=== PATIENT | female | born 1935 | race Caucasian/White ===

== ENCOUNTER → 2016-10-19 | Outpatient (CLI) | payer MEDICARE, OTHER ==
[~2016-10-19] MED LIST: ACETAMINOPHEN500 M2 PO; APAP325 M1 PO; ASPIRIN ENTERI325 M1 DOB; ASPIRIN325 M1 PO; BACTRIM DS TABL1 TA1 PO; CLEOCIN HCL300 M1 PO; DIOVAN HCT 80/11 TAB PO; FISH OIL500 M1 PO; FOLIC ACID1 MG PO; HYDROXYZINE HCL25 M1 DOB; IRON PO; LIBRIUM25 M1 PO; LISINOPRIL5 MG PO; LORTAB 5-325 M1 EACH PO; METHIMAZOLE10 MG PO; METHIMAZOLE5 MG PO; MOBIC PO; MULTI COMPLETE1 EACH PO; MULTI-VITAMIN1 EAC1 PO; NORVASC PO; NORVASC10 MG PO; OMEPRAZOLE40 M1 PO; PERCOCET5/325 PO; PROTONIX PO; REQUIP0.25 MG PO; ROPINIROLE HCL0.5 MG PO; ST. JOSEPH ASP325 MG PO; THIAMINE HCL100 M2 PO; VITAMIN C1000 M1 PO; VITAMIN D400 UNI1 PO
--- NOTE | ~2016-10-19 | MY7 ---
[facility] A Service of [facility] & [facility] RADIOLOGY TEXT RESULTS PATIENT: MARIANNA JACKSON LOCATION: [facility] : 34 UNIT #: [id number] AGE: [address]: JUNI TOVAR SEX: F ORDER DR: [id number] [facility] [address] [place], [place] [address] [id number] O MR#: [id number] Acc #: [id number] NAME: MARIANNA JACKSON : 1935 SEX: F STUDY DATE/TIME: 10/19/2016 14:54 UNIT: [facility] ROOM: STUDY DESCRIPTION: MY Mammogram Dx Dig Lt Attending Physician: Nola Rivera Referring Physician: Nola Rivera Ordering Physician: Nola Rivera Primary Care Physician: Tracey Perry M.D. MEDICAL IMAGING REPORT This report is preliminary unless electronic signature is present EXAM Diagnostic left mammogram. DATE OF EXAM 10/19/2016 INDICATION Abnormal screening exam showing asymmetric density in the lateral anterior left breast. 2 areas of asymmetric density are noted in the upper left breast as well. The patient has no current complaints. FINDINGS Spot compression digital left CC and MLO views were obtained in addition to a standard true lateral view. The study is reviewed with an FDA-approved CAD device. COMPARISON Comparison is made with 12/01/2015. Additional image today confirm an asymmetric density in the lateral anterior left breast on the CC view, measuring about 10 mm in size. This is probably mammographically located in the upper hemisphere as well. Ultrasound was performed. Ultrasound demonstrates 2 areas of abnormality, adjacent to one another at the 3 o'clock periareolar location. One of these is an ovoid hypoechoic fairly well circumscribed lesion measuring up to 9 mm. The other area is a suspicious area of shadowing which probably corresponds to the mammographic finding. Ultrasound-guided core biopsy of the area of shadowing is recommended. The more nodular area of density could be biopsied or aspirated at that time as well. Findings and recommendations have been discussed with the patient at the time of her examination today. They have also been discussed with Jana, in the breast advocate office for physician notification purposes. Of note, the [facility] A Service of [facility] & [facility] RADIOLOGY TEXT RESULTS PATIENT: MARIANNA JACKSON LOCATION: [facility] : 34 UNIT #: [id number] AGE: [address]: JUNI TOVAR SEX: F ORDER DR: patient reports that she is on aspirin daily. I believe it is safe to proceed wit a core biopsy with the patient on aspirin. IMPRESSION 1. Suspicious mammographic lesion with an ultrasound correlate at 3 o'clock. Ultrasound-guided core biopsy recommended with clip placement. Adjacent to the suspicious finding, there is an indeterminant nodule as well. This could be biopsied or aspirated as well at the time, when the patient returns for her procedure. 2. BIRADS 4. Patients over the age of 40 are entered into a reminder system with target due date for the next mammogram. A result letter will also be sent to the patient. BIRADS: 4 Suspicious abnormality; biopsy should be considered. Dictated by... Bk Beckett Jr., M.D. THIS IS AN ELECTRONICALLY VERIFIED REPORT Bk Beckett Jr., M.D. at 10/20/2016 8:25 AM KARIE/meena TD: 10/19/2016 17:41 JOB #: [id number] MEDICAL IMAGING REPORT Page 1 of 1 COPY
--- NOTE | ~2016-10-19 | US24 ---
[facility] A Service of [facility] RADIOLOGY TEXT RESULTS PATIENT: MARIANNA JACKSON LOCATION: [facility] : 34 UNIT #: [id number] AGE: [address]: JUNI TOVAR SEX: F ORDER DR: [id number] [place], [place] [address] [id number] O MR#: [id number] Acc #: [id number] NAME: MARIANNA JACKSON : 1935 SEX: F STUDY DATE/TIME: 10/19/2016 15:18 UNIT: [facility] ROOM: STUDY DESCRIPTION: US Breast Unilateral Attending Physician: Nola Rivera Referring Physician: Nola Rivera Ordering Physician: Nola Rivera Primary Care Physician: Tracey Perry M.D. MEDICAL IMAGING REPORT This report is preliminary unless electronic signature is present EXAM Left breast ultrasound. DATE OF EXAM 10/19/2016 INDICATION Abnormal mammogram demonstrating asymmetric density in the left breast. FINDINGS For a full report, please see the mammogram report dated 10/19/2016. Patients over the age of 40 are entered into a reminder system with target due date for the next mammogram. A result letter will also be sent to the patient. BIRADS: 4 Suspicious abnormality; biopsy should be considered. Dictated by... Bk Beckett Jr., M.D. THIS IS AN ELECTRONICALLY VERIFIED REPORT Bk Beckett Jr., M.D. at 10/20/2016 8:25 AM KARIE/meena TD: 10/19/2016 18:03 JOB #: [id number] [facility] A Service of [facility] RADIOLOGY TEXT RESULTS PATIENT: MARIANNA JACKSON LOCATION: [facility] : 34 UNIT #: [id number] AGE: [address]: JUNI TOVAR SEX: F ORDER DR: MEDICAL IMAGING REPORT Page 1 of 1 COPY
== END | disposition home or self-care (01) ==
LOC: CMAM 12:30
DX: R92.8 Other abnormal and inconclusive findings on diagnostic imaging of breast (principal); N64.89 Other specified disorders of breast
CPT/HCPCS: 76641; G0206

== ENCOUNTER → 2016-10-26 | Day surgery (SDC) | payer MEDICARE, OTHER ==
--- NOTE | ~2016-10-26 | US200 ---
[facility] A Service of [facility] RADIOLOGY TEXT RESULTS PATIENT: MARIANNA JACKSON LOCATION: [facility] : 34 UNIT #: [id number] AGE: [address]: Tracey Perry MD SEX: F ORDER DR: [id number] [facility]. [place], [place] [address] [id number] O MR#: [id number] Acc #: [id number] NAME: MARIANNA JACKSON : 1935 SEX: F STUDY DATE/TIME: 10/26/2016 14:18 UNIT: [facility] ROOM: STUDY DESCRIPTION: US Breast Guided Bx 1st Lesion Attending Physician: Tracey Perry M.D. Referring Physician: Tracey Perry M.D. Ordering Physician: Tracey Perry M.D. Primary Care Physician: Tracey Perry M.D. MEDICAL IMAGING REPORT This report is preliminary unless electronic signature is present REVISED REPORT SEE ADDENDUM EXAM Ultrasound-guided core biopsy of 2 left breast nodules. DATE 10/26/2016 HISTORY 2 suspicious left breast nodules in the 3 o'clock axis for which ultrasound-guided core biopsy is recommended. COMPARISON Diagnostic left breast mammogram and ultrasound, 10/19/2016. PROCEDURE The risks, benefits, and indications of the procedure were explained in detail to the patient. The patient had not stopped her aspirin therapy prior to the examination, and the increased risk for bleeding were discussed with the patient. However, due to the patient's age and mobility issues, it was decided to proceed with the procedure today. The patient verbalized understanding. Left breast was prepped and draped in the usual sterile fashion. 1% lidocaine was injected subcutaneously at chosen site. A single dermatotomy was performed. Subsequently, a 13-gauge guidance needle was advanced to the dominant, irregularly marginated, hypoechoic, shadowing, solid nodule in the 3 o'clock axis. Through this, three 14-gauge core needle biopsy specimens were obtained and submitted in formalin. Subsequently, a U-shaped clip was deployed just at the superior lateral STS. [facility] A Service of [facility] RADIOLOGY TEXT RESULTS PATIENT: MARIANNA JACKSON [facility] [id number] : 34 UNIT #: [id number] AGE: [address]: Tracey Perry MD SEX: F ORDER DR: margin of the lesion. Subsequently, through the same dermatotomy, another 13-gauge guidance was advanced to a more rounded, somewhat cystic-appearing nodule at the 3 o'clock axis immediately adjacent to the dominant previously biopsied nodule. Three 2.3 cm 14-gauge core-needle biopsy specimens were obtained of this somewhat cystic lesion and specimens were submitted in formalin for surgical pathology analysis. Subsequently, a bowtie shaped clip was placed at the superolateral margin of this more cystic-appearing nodule. Two-view postprocedure mammogram was obtained for verification of clip placement. The patient did experience some bleeding from the dermatotomy site and a small amount of intramammary hematoma developed. However, after direct compression for approximately 2-3 minutes, the bleeding resolved from the dermatotomy site. The patient verbalized no complaints and tolerated the procedure well. IMPRESSION Successful ultrasound-guided core needle biopsy of 2 separate nodules in the 3 o'clock axis of the left breast with subsequent clip placement. Specimen submitted for surgical pathology analysis. Small postprocedure hematoma. Patient verbalized no complaints. Dictated by... Pippa Garcia M.D. THIS IS AN ELECTRONICALLY VERIFIED REPORT Pippa Garcia M.D. at 10/27/2016 9:41 AM [facility]/sol TD: 10/26/2016 16:10 JOB #: [id number] ADDENDUM EXAM Ultrasound-guided core biopsy 10/26/2016. ADDENDUM The periareolar 3 o'clock solid mass demonstrates foci of atypical lobular hyperplasia with scattered microcalcifications present, no invasive carcinoma identified. Core biopsy of 3 o'clock left breast periareolar STS. 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 Mammographic and sonographic findings concordant with pathology findings. Breast surgical consultation is advised. Dictated by... Pippa Garcia M.D. THIS IS AN ELECTRONICALLY VERIFIED REPORT Pippa Garcia M.D. at 11/05/2016 2:23 PM LU[facility]/eh TD: 11/01/2016 18:08 JOB #: [id number] CC: Daniel/brielle Please Delete MEDICAL IMAGING REPORT Page 1 of 1 COPY
--- NOTE | ~2016-10-26 | US201 ---
[id number] [facility] [address] [facility]. [place], [place] [address] [id number] O MR#: [id number] Acc #: [id number] NAME: MARIANNA JACKSON : 1935 SEX: F STUDY DATE/TIME: 10/26/2016 14:18 UNIT: [facility] ROOM: STUDY DESCRIPTION: US Breast Guided Bx Add Lesion Attending Physician: Tracey Perry M.D. Referring Physician: Tracey Perry M.D. Ordering Physician: Tracey Perry M.D. Primary Care Physician: Tracey Perry M.D. MEDICAL IMAGING REPORT This report is preliminary unless electronic signature is present EXAM Ultrasound-guided core biopsy of additional lesion left breast. DATE 10/26/2016 HISTORY 2 suspicious left breast nodules in the 3 o'clock axis for which ultrasound-guided core biopsy is recommended. FINDINGS Please see US-guided breast biopsy first lesion for results. Dictated by... Pippa Garcia M.D. THIS IS AN ELECTRONICALLY VERIFIED REPORT Pippa Garcia M.D. at 10/27/2016 9:41 AM [facility]/sol TD: 10/26/2016 16:16 JOB #: [id number] MEDICAL IMAGING REPORT Page 1 of 1 COPY
--- NOTE | ~2016-10-26 | MY14 ---
[facility] A Service of [facility] & [facility] RADIOLOGY TEXT RESULTS PATIENT: MARIANNA JACKSON LOCATION: [facility] : 34 UNIT #: [id number] AGE: [address]: Tracey Perry MD SEX: F ORDER DR: [id number] [facility] [address] [facility] [place], [place] [address] [id number] O MR#: [id number] Acc #: [id number] NAME: MARIANNA JACKSON : 1935 SEX: F STUDY DATE/TIME: 10/26/2016 15:10 UNIT: [facility] ROOM: STUDY DESCRIPTION: MY Post Bx Film Attending Physician: Tracey Perry M.D. Referring Physician: Tracey Perry M.D. Ordering Physician: Tracey Perry M.D. Primary Care Physician: Tracey Perry M.D. MEDICAL IMAGING REPORT This report is preliminary unless electronic signature is present EXAM Three-view post-biopsy left mammogram with post biopsy clip placement DATE 10/26/2016 HISTORY Ultrasound-guided core biopsy of 2 left breast nodules at 3 o'clock position today. Postprocedure mammogram to confirm clip placement. COMPARISON Left breast diagnostic mammogram and ultrasound 10/19/2016 FINDINGS Increased heterogeneously dense tissue is demonstrated within the left breast, likely, in part, related to some postprocedure bleeding in the left breast at the biopsy site. Two clips are seen within the 3 o'clock axis of the left breast, with the "view" shaped clip corresponding to the more solid heterogeneous, shadowing nodule on ultrasound, and a bow-tie shaped clip corresponding to a somewhat more rounded or cystic type lesion adjacent to the dominant lesion on ultrasound. IMPRESSION 3-D post biopsy mammogram for clip placement verification. Dictated by... Pippa Garcia M.D. THIS IS AN ELECTRONICALLY VERIFIED REPORT Pippa Garica M.D. at 10/27/2016 9:41 AM [facility]/andre TD: 10/26/2016 16:02 [facility] A Service of [facility] & [facility] RADIOLOGY TEXT RESULTS PATIENT: MARIANNA JACKSON LOCATION: [facility] #: [id number] : 34 UNIT #: [id number] AGE: [address]: Tracey Perry MD SEX: F ORDER DR: JOB #: [id number] MEDICAL IMAGING REPORT Page 1 of 1 COPY
== END | disposition home or self-care (01) ==
LOC: CWCC 13:18
DX: C50.812 Malignant neoplasm of overlapping sites of left female breast (principal); Z17.0 Estrogen receptor positive status [ER+]
CPT/HCPCS: 88305; 88341; 88342; 88360; G0204

== ENCOUNTER → 2016-11-30 | Outpatient (CLI) | payer MEDICARE, OTHER ==
--- NOTE | ~2016-11-30 | EKG ---
PATIENT: MARIANNA JACKSON UNIT #: [id number] Ventricular Rate: 66 BPM Atrial Rate: 66 BPM P-R Interval: 140 ms QRS Duration: 80 ms Q-T Interval: 408 ms QTC Calculation(Bezet): 427 ms P [place]: 28 degrees Calculated R [place]: -10 degrees Calculated T [place]: 10 degrees Diagnosis Line: Normal sinus rhythm Diagnosis Line: Normal ECG Diagnosis Line: When compared with ECG of 15-APR-2015 07:23, Diagnosis Line: Premature atrial complexes are no longer Present Diagnosis Line: Non-specific change in ST segment in Inferior Diagnosis Line: leads Diagnosis Line: Confirmed by TRUMAN WAGGONER MD ([id number]) on Diagnosis Line: 11/30/2016 10:45:45 PM INTERPRETING MD: SHEY
[2016-11-30 12:09] LABS: HEMATOCRIT 40.8 % (35.0-45.0); HEMOGLOBIN 13.3 gm/dL (12.0-16.0); MEAN CELL VOLUME 100.3 FL (83-96); MEAN CORPUSCULAR HEMOGLOBIN 32.8 PG (28-34); MEAN CORPUSCULAR HGB CONC 32.7 g/dL (30-36); MEAN PLATELET VOLUME 11.8 FL (6.5-11.5); RED BLOOD COUNT 4.06 X10e (3.90-5.30); RED CELL DISTRIBUTION WIDTH 13.6 % (11.0-15.5); WHITE BLOOD COUNT 7.6 X10e3 (4.0-10.5)
[2016-11-30 13:27] LABS: ALBUMIN SERUM 3.9 g/dL (3.5-5.0); CALCIUM SERUM 8.9 mg/dL (8.4-10.2); CREATININE SERUM 0.6 mg/dL (0.6-1.4); GLOM FILT RATE Estimated 84.9 mL/min (>60); POTASSIUM 4.2 mmol/L (3.5-5.1); PROTEIN TOTAL SERUM 6.4 g/dL (6.0-8.3)
== END | disposition home or self-care (01) ==
LOC: CAMB 11:00
PROVIDERS: Specialist
DX: Z01.818 Encounter for other preprocedural examination (principal)
CPT/HCPCS: 36415; 80053; 85027; 93005

== ENCOUNTER 2016-12-07 07:36 | Observation (INO) | payer MEDICARE, OTHER ==
--- NOTE | ~2016-12-07 | DS ---
Unit #: [id number] #: [id number] Patient: MARIANNA JACKSON [id number] [address] [place], [place] [address] [id number] I MR#: [id number] NAME: MARIANNA JACKSON ROOM: [facility] Age: 81 Sex: F Admission Date: 12/07/2016 : 1935 Discharge Date: 12/08/2016 Attending Physician: Bk Cespedes M.D. Primary Care Physician: Tracey Perry M.D. DISCHARGE SUMMARY HISTORY AND HOSPITAL COURSE Ms. 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 She was brought in the morning of surgery where she underwent left mastectomy with sentinel node biopsy and on pathology the frozen section showed that she had five benign sentinel nodes. She was admitted to the hospital postoperatively for observation and pain control and she remained hemodynamically stable. She had minimal discomfort. She had serosanguineous drainage in her Martin-Mathur as expected and she, otherwise, did very well. This morning, she is awake, alert and oriented, tolerating a regular diet and in minimal discomfort. Today, she will be taught how to use her Martin-Mathur drain as will her son, who she lives with, and once she is able to take of her Martin-Mathur drain she will be discharged home in stable condition. At home, she can undergo diet and activity as tolerated, keep the Martin-Mathur to bulb suction. She is to follow up in the office next Tuesday. We have asked her to call for an appointment time. Prescription for hydrocodone 5 mg tablets was left for pain control. Her med reconciliation sheet was completed. Dictated by... Bk Cespedes M.D. LEEANN/jaimee TD: 12/09/2016 08:35 JOB #: [id number] DISCHARGE SUMMARY Page 1 of 1 X Bk Cespedes MD X DISCHARGE SUMMARY
--- NOTE | ~2016-12-07 | OR ---
Unit #: [id number] #: [id number] Patient: MARIANNA JACKSON [id number] [facility]. [place], [place] [address] [id number] I MR#: [id number] NAME: MARIANNA JACKSON ROOM: [facility] Date of Procedure: 12/07/2016 Admission Date: 12/07/2016 Surgeon: Bk Cespedes M.D. : 1935 Attending Physician: Bk Cespedes M.D. Primary Care Physician: Tracey Perry M.D. OPERATIVE REPORT PRIMARY CARE PHYSICIAN Tracey Perry M.D. PREOPERATIVE DIAGNOSIS Adenocarcinoma of left breast. POSTOPERATIVE DIAGNOSIS Adenocarcinoma of left breast. PROCEDURES PERFORMED Left mastectomy with sentinel node biopsy, placement of Martin-Mathur drain. ANESTHESIA General endotracheal anesthesia. ESTIMATED BLOOD LOSS 20 mL. INDICATIONS FOR PROCEDURE Ms. Jackson is a very pleasant 81-year-old female with a family history of breast cancer, who was seen in the office after mammogram was suspicious for malignant lesion at two separate sites in the left breast. On biopsy, one was atypical lobular hyperplasia, but the second lesion was an infiltrating ductal carcinoma. Estrogen and progesterone receptors were positive and the HER-2/gerald oncoprotein was negative, and after full discussion of treatment options and preoperative evaluation, the patient has opted for a mastectomy with sentinel node biopsy. DESCRIPTION OF PROCEDURE The patient was admitted to [facility], taken to the breast center, where nuclear tracer was infiltrated for the sentinel node biopsy. She was then brought to the operating room, where after induction of general endotracheal anesthesia, she received antibiotics per SCIP protocol. Lymphazurin dye was infiltrated and she was prepped and draped in usual sterile fashion. A modified Coy mastectomy incision was made. Superior flap was created and using the Neoprobe, I identified the site of the suspected sentinel node. There was also staining with dye consistent with sentinel node activity. The specimen was dissected free from the soft tissue and Ex vivo, there were excellent counts with the nuclear tracer. The nodes were sent to the pathology lab and on frozen section, there were five sentinel nodes all of which were benign. While I Unit #: [id number] #: [id number] Patient: MARIANNA JACKSON was awaiting on the path report, the inferior flap was created and the breast tissue was dissected off the chest wall to include the pectoral fascia in a lateral to medial direction. There was good hemostasis. I irrigated the chest wall and the axilla and there was good hemostasis. After confirmation of the diagnosis, a Martin-Mathur drain was placed and secured with 2-0 silk suture. The skin was closed with sterile skin yolande and a dry sterile dressing was placed. Sponges and needle counts were correct x3. The patient tolerated the procedure well and was transported to recovery in stable condition. She will be admitted on 23-hour observation for pain control and observation for bleeding. We will await her final path before completing her staging and recommending any further adjuvant therapy. Dictated by... Julia Aranda/jonathan TD: 12/07/2016 17:11 JOB #: [id number] OPERATIVE REPORT Page 1 of 1 X Bk Cespedes MD X PROCEDURE OPERATIVE NOTE
--- NOTE | ~2016-12-07 | NM79 ---
[facility] A Service of [facility] RADIOLOGY TEXT RESULTS PATIENT: MARIANNA JACKSON LOCATION: [place] [address]- : 34 UNIT #: [id number] AGE: [address]: Bk Cespedes MD SEX: F ORDER DR: [id number] [facility] [address] [place], [place] [address] [id number] I MR#: [id number] Acc #: [id number] NAME: MARIANNA JACKSON : 1935 SEX: F STUDY DATE/TIME: 12/07/2016 8:36 UNIT: [facility] ROOM: STUDY DESCRIPTION: NM Two Dot Node Inj Attending Physician: Bk Cespedes M.D. Ordering Physician: Bk Cespedes M.D. Primary Care Physician: Tracey Perry M.D. MEDICAL IMAGING REPORT This report is preliminary unless electronic signature is present EXAM Two Dot node injection, 12/07 INDICTIONS Left side breast cancer. Patient presents for sentinel node biopsy at time of left mastectomy today. FINDINGS The patient's imaging was reviewed and her identity was confirmed. Then, four intradermal injections were made in the periareolar breast. A total of 553 mcCi of Tc99m labeled filtered sulfur colloid were injected at 8:20 a.m. No immediate complications. IMPRESSION Successful periareolar injection of 553 mcCi of Tc99m labeled filtered sulfur colloid for sentinel node mapping. Dictated by... Bk Beckett Jr., M.D. THIS IS AN ELECTRONICALLY VERIFIED REPORT Bk Beckett Jr., M.D. at 12/07/2016 3:38 PM KARIE/kasandra TD: 12/07/2016 13:37 JOB #: [id number] MEDICAL IMAGING REPORT Page 1 of 1 COPY
[~2016-12-07 07:36] MED LIST changes: -LORTAB 5-325 M1 EACH PO
[2016-12-08] MEDS ORDERED: LORTAB 5-325 M1 EACH PO (10:24)
== END 2016-12-08 11:42 | disposition home or self-care (01) ==
LOC: CSUR 07:36 → CNUC 08:00 → CSUR 10:27 → CPACUOF 10:27 → CSUR 10:30 → CPACUOF 12:45 → C4C 14:10
DX: C50.812 Malignant neoplasm of overlapping sites of left female breast (principal); Z17.0 Estrogen receptor positive status [ER+]; E03.9 Hypothyroidism, unspecified; I10 Essential (primary) hypertension; M81.0 Age-related osteoporosis without current pathological fracture; M17.10 Unilateral primary osteoarthritis, unspecified knee; Z79.82 Long term (current) use of aspirin; Z79.899 Other long term (current) drug therapy; Z87.19 Personal history of other diseases of the digestive system; Z86.73 Personal history of transient ischemic attack (TIA), and cerebral infarction without residual deficits; Z82.49 Family history of ischemic heart disease and other diseases of the circulatory system; Z80.8 Family history of malignant neoplasm of other organs or systems; Z82.61 Family history of arthritis; Z82.3 Family history of stroke; Z98.890 Other specified postprocedural states
CPT/HCPCS: 88307; 88309; 88331; 88332; 96374; 96376; A9541; G0378; J0690; J3010